=== PATIENT | female | born 1955 | race Hispanic/Latino ===

== ENCOUNTER 2022-08-02 10:31 | Inpatient (IN) | payer MEDICARE ==
[~2022-08-02] VITALS: Ht 162.6 cm; Wt 97.7 kg
[2022-08-02] VITALS (16 sets, daily range): BP systolic 128–191; BP diastolic 68–118
[2022-08-02 10:58] LABS: BASOPHILS # (AUTO) 0.1 (0.0-0.1); BASOPHILS % 0.5 % (0.0-1.0); EOSINOPHILS % 0.3 % (0.0-6.0); HEMATOCRIT 50.5 % (34.2-44.1); HEMOGLOBIN 16.4 g/dL (12.0-16.0); LYMPHOCYTES # (AUTO) 1.6 (1.0-3.2); LYMPHOCYTES % 15.5 % (18.0-39.1); MEAN CORPUSCULAR HEMOGLOBIN 29.3 pg (28-32); MEAN CORPUSCULAR HGB CONC 32.5 g/dL (31-35); MEAN CORPUSCULAR VOLUME 90.3 fL (81-99); MONOCYTES # (AUTO) 0.4 (0.2-0.8); MONOCYTES % 3.6 % (4.4-11.3); NEUTROPHILS # (AUTO) 8.5 (2.1-6.9); NEUTROPHILS % 79.8 % (38.7-80.0); PLATELET COUNT 268 x10e3/uL (140-360); RED BLOOD COUNT 5.59 x10e6/uL (3.6-5.1); RED CELL DISTRIBUTION WIDTH 12.5 % (11.7-14.4)
[2022-08-02 11:11] LABS: INR 0.94; PROTHROMBIN TIME 12.8 seconds (11.9-14.5)
[2022-08-02 11:18] LABS: ALBUMIN 4.6 g/dL (3.5-5.0); ALBUMIN/GLOBULIN RATIO 1.2 (0.8-2.0); ANION GAP 15.6 mmol/L (8-16); CALCIUM 9.9 mg/dL (8.4-10.2); CREATININE, SERUM 0.76 mg/dL (0.57-1.11); POTASSIUM 3.6 mmol/L (3.5-5.1)
[2022-08-02] MEDS ORDERED: IOPAMIDOL 370 MG/ML 100 ML INFUS..BTL INJ ONE (11:42)
[2022-08-02] MEDS ORDERED: SODIUM CHLORIDE 0.9% 100 ML ONE (11:42)
[2022-08-02] MEDS ORDERED: ONDANSETRON HCL INJ 2MG/ML 2ML 2 MG/ML VIAL IV STA (12:53)
[2022-08-02] MEDS ORDERED: ETOMIDATE 2 MG/ML 10 ML INJ IV ONE (12:58)
[2022-08-02] MEDS ORDERED: MIDAZOLAM HCL 2 MG/2 ML VIAL ONE (12:58)
[2022-08-02] MEDS ORDERED: ASPIRIN 81 MG CHEW TAB PO ONE (13:00)
[2022-08-02] MEDS ORDERED: ASPIRIN 300 MG SUPP PR STA (13:05)
[2022-08-02] MEDS ORDERED: SODIUM CHLORIDE 0.9% 1000ML 1,000 ML IV SCH (13:15)
[2022-08-02] MEDS ORDERED: ONDANSETRON HCL INJ 2MG/ML 2ML 2 MG/ML VIAL IV PRN (13:15)
[2022-08-02] MEDS ORDERED: HYDRALAZINE HCL 20 MG/ML VIAL IV ONE (13:30)
[2022-08-02] MEDS ORDERED: METOPROLOL TARTRATE INJ 1 MG/ML VIAL IV PRN (16:30)
[2022-08-02] MEDS ORDERED: NO HOME MEDS PER PT (18:07)
[2022-08-02] MEDS: DEXTROSE 5%/0.45% SOD CHL 1,000 ML IV SCH (18:21)
[2022-08-02] MEDS: LABETALOL HCL 5 MG/ML 20ML VIAL IV PRN (20:26)
[2022-08-03] VITALS (67 sets, daily range): BP systolic 91–221; BP diastolic 61–144
[2022-08-03] MEDS: DEXTROSE 5%/0.45% SOD CHL 1,000 ML IV SCH ×2 (03:20→20:01)
[2022-08-03 05:15] LABS: BASOPHILS % 0.3 % (0.0-1.0); EOSINOPHILS % 0.1 % (0.0-6.0); HEMATOCRIT 47.5 % (34.2-44.1); HEMOGLOBIN 15.6 g/dL (12.0-16.0); LYMPHOCYTES # (AUTO) 1.7 (1.0-3.2); LYMPHOCYTES % 13.1 % (18.0-39.1); MEAN CORPUSCULAR HEMOGLOBIN 29.8 pg (28-32); MEAN CORPUSCULAR HGB CONC 32.8 g/dL (31-35); MEAN CORPUSCULAR VOLUME 90.6 fL (81-99); MONOCYTES # (AUTO) 0.8 (0.2-0.8); MONOCYTES % 5.8 % (4.4-11.3); NEUTROPHILS # (AUTO) 10.6 (2.1-6.9); NEUTROPHILS % 80.5 % (38.7-80.0); PLATELET COUNT 284 x10e3/uL (140-360); RED BLOOD COUNT 5.24 x10e6/uL (3.6-5.1); RED CELL DISTRIBUTION WIDTH 12.8 % (11.7-14.4)
[2022-08-03 05:31] LABS: ANION GAP 14.7 mmol/L (8-16); CALCIUM 9.6 mg/dL (8.4-10.2); CREATININE, SERUM 0.74 mg/dL (0.57-1.11); POTASSIUM 3.7 mmol/L (3.5-5.1)
[2022-08-03] MEDS: LABETALOL HCL 5 MG/ML 20ML VIAL IV PRN ×2 (05:43→07:25)
[2022-08-03 06:00] LABS: CHOL/HDL RATIO 4.6 (3.0-3.6)
[2022-08-03] MEDS ORDERED: LABETALOL HCL 5 MG/ML 20ML VIAL IV PRN (08:00)
[2022-08-03] MEDS ORDERED: LABETALOL HCL 5 MG/ML 20ML VIAL IV ONE ×2 (08:30→11:00)
[2022-08-03] MEDS ORDERED: CLOPIDOGREL BISULFATE 75 MG TAB PO SCH (09:00)
[2022-08-03] MEDS ORDERED: ASPIRIN 81 MG ENTERIC COATED PO SCH (09:00)
[2022-08-03] MEDS ORDERED: POTASSIUM CHLORIDE 20MEQ/100ML 100 ML IV SCH (11:00)
[2022-08-03] MEDS ORDERED: NICARDIPINE 20MG/200ML PREMIX 200 ML ONE (11:36)
[2022-08-03] MEDS: NICARDIPINE 20MG/200ML PREMIX 200 ML IV SCH ×2 (11:47→18:10)
[2022-08-03] MEDS ORDERED: PROPOFOL IV EMULSION 10MG/ML 100 ML IV PRN (13:15)
[2022-08-03] MEDS ORDERED: PROPOFOL IV EMULSION 10MG/ML 100 ML ONE (13:21)
[2022-08-03] MEDS: PROPOFOL IV EMULSION 10MG/ML 100 ML IV PRN ×3 (14:37→20:01)
[2022-08-03] MEDS ORDERED: POTASSIUM CHLORIDE 20MEQ/100ML 100 ML IV ONE (15:00)
[2022-08-03 15:20] LABS: ABG HCO3 25 mmol/L (22-26); ABG PCO2 47 mmHg (35-45); ABG PH 7.33 (7.35-7.45); ABG PO2 96 mmHg (80-105); ABG TCO2 27
[2022-08-03] MEDS ORDERED: SODIUM CHLORIDE 0.9% 1000ML 1,000 ML ONE (15:24)
[2022-08-03] MEDS ORDERED: MIDAZOLAM HCL 2 MG/2 ML VIAL ONE (15:25)
[2022-08-03] MEDS ORDERED: MIDAZOLAM HCL 2 MG/2 ML VIAL IV ONE (15:30)
[2022-08-03 16:21] LABS: ABG PH 7.46 (7.35-7.45)
[2022-08-03 16:22] LABS: ABG HCO3 22 mmol/L (22-26); ABG PCO2 31 mmHg (35-45); ABG PO2 124 mmHg (80-105); ABG TCO2 23
[2022-08-03] MEDS ORDERED: METHYLPREDNISOLONE SOD SUCC 125 MG/2ML VIAL IV ONE (16:45)
[2022-08-03] MEDS: IMMU GLOBULIN,GAMMA (IGG) 400 ML IV SCH (16:51)
[2022-08-03] MEDS: PYRIDOSTIGMINE BROMIDE 60 MG TAB NG SCH ×2 (17:58→21:18)
[2022-08-03 18:09] LABS: ALBUMIN 3.8 g/dL (3.5-5.0); BILIRUBIN,DIRECT 0.3 mg/dL (0.0-0.5)
[2022-08-03 18:11] LABS: CHOL/HDL RATIO 4.8 (3.0-3.6)
[2022-08-03 18:31] LABS: THYROID STIMULATING HORMONE 0.639 uIU/mL (0.350-4.940)
[2022-08-03 18:41] LABS: HIV 1&2 AB SCREEN NON-REACTIVE (NONREACTIVE)
[2022-08-03] MEDS ORDERED: ATORVASTATIN 40 MG TAB PO SCH (21:00)
[2022-08-04] VITALS (64 sets, daily range): BP systolic 81–185; BP diastolic 52–120
[2022-08-04] MEDS: PYRIDOSTIGMINE BROMIDE 60 MG TAB NG SCH ×6 (02:22→21:59)
[2022-08-04] MEDS: PROPOFOL IV EMULSION 10MG/ML 100 ML IV PRN ×6 (02:23→19:14)
[2022-08-04 06:11] LABS: BASOPHILS % 0.4 % (0.0-1.0); HEMATOCRIT 43.7 % (34.2-44.1); HEMOGLOBIN 14.1 g/dL (12.0-16.0); LYMPHOCYTES % 9.1 % (18.0-39.1); MEAN CORPUSCULAR HEMOGLOBIN 29.6 pg (28-32); MEAN CORPUSCULAR HGB CONC 32.3 g/dL (31-35); MEAN CORPUSCULAR VOLUME 91.6 fL (81-99); MONOCYTES # (AUTO) 0.5 (0.2-0.8); MONOCYTES % 4.4 % (4.4-11.3); NEUTROPHILS # (AUTO) 9.5 (2.1-6.9); NEUTROPHILS % 85.7 % (38.7-80.0); PLATELET COUNT 242 x10e3/uL (140-360); RED BLOOD COUNT 4.77 x10e6/uL (3.6-5.1)
[2022-08-04 06:20] LABS: ABG HCO3 24 mmol/L (22-26); ABG PCO2 39 mmHg (35-45); ABG PH 7.39 (7.35-7.45); ABG PO2 116 mmHg (80-105); ABG TCO2 25
[2022-08-04 06:40] LABS: ALBUMIN 3.4 g/dL (3.5-5.0); ALBUMIN/GLOBULIN RATIO 0.8 (0.8-2.0); ANION GAP 12.7 mmol/L (8-16); CALCIUM 9.1 mg/dL (8.4-10.2); CREATININE, SERUM 0.87 mg/dL (0.57-1.11); POTASSIUM 3.7 mmol/L (3.5-5.1)
[2022-08-04] MEDS ORDERED: METHYLPREDNISOLONE SOD SUCC 40 MG/ML VIAL 1ML IV ONE (08:30)
[2022-08-04] MEDS: POTASSIUM CHLORIDE 20MEQ/100ML 100 ML IV SCH ×2 (08:41→11:04)
[2022-08-04] MEDS ORDERED: LIDOCAINE 1% 10 ML MULTIDOSE VIAL IJ ONE (13:23)
[2022-08-04] MEDS ORDERED: IOPAMIDOL 370 MG/ML 100 ML INFUS..BTL INJ ONE (13:30)
[2022-08-04] MEDS ORDERED: MIDAZOLAM HCL 2 MG/2 ML VIAL ONE (14:29)
[2022-08-04 15:32] LABS: APPEARANCE,CSF CLEAR (CLEAR); COLOR,CSF COLORLESS (COLORLESS); TUBE NUMBER 4
[2022-08-04 15:33] LABS: WHITE BLOOD CELL,CSF 2 cells/uL (0-5)
[2022-08-04] MEDS: IMMU GLOBULIN,GAMMA (IGG) 400 ML IV SCH (16:36)
[2022-08-04] MEDS: NICARDIPINE 20MG/200ML PREMIX 200 ML IV SCH (19:13)
[2022-08-05] VITALS (64 sets, daily range): BP systolic 107–180; BP diastolic 62–154
[2022-08-05] MEDS: PROPOFOL IV EMULSION 10MG/ML 100 ML IV PRN ×6 (00:26→21:55)
[2022-08-05] MEDS: PYRIDOSTIGMINE BROMIDE 60 MG TAB NG SCH ×6 (02:26→21:54)
[2022-08-05] MEDS: NICARDIPINE 20MG/200ML PREMIX 200 ML IV SCH ×2 (06:31→12:58)
[2022-08-05 06:57] LABS: BASOPHILS # (AUTO) 0.1 (0.0-0.1); BASOPHILS % 0.5 % (0.0-1.0); EOSINOPHILS % 0.2 % (0.0-6.0); HEMATOCRIT 42.4 % (34.2-44.1); HEMOGLOBIN 14.9 g/dL (12.0-16.0); LYMPHOCYTES % 16.1 % (18.0-39.1); MEAN CORPUSCULAR HGB CONC 35.1 g/dL (31-35); MEAN CORPUSCULAR VOLUME 85.3 fL (81-99); MONOCYTES # (AUTO) 0.7 (0.2-0.8); MONOCYTES % 5.9 % (4.4-11.3); NEUTROPHILS # (AUTO) 9.3 (2.1-6.9); NEUTROPHILS % 76.9 % (38.7-80.0); PLATELET COUNT 213 x10e3/uL (140-360); RED BLOOD COUNT 4.97 x10e6/uL (3.6-5.1); RED CELL DISTRIBUTION WIDTH 13.7 % (11.7-14.4)
[2022-08-05 07:13] LABS: ALBUMIN 3.1 g/dL (3.5-5.0); ALBUMIN/GLOBULIN RATIO 0.6 (0.8-2.0); ANION GAP 10.6 mmol/L (8-16); CALCIUM 8.7 mg/dL (8.4-10.2); CREATININE, SERUM 0.68 mg/dL (0.57-1.11); POTASSIUM 3.6 mmol/L (3.5-5.1)
[2022-08-05 08:17] LABS: ABG HCO3 24 mmol/L (22-26); ABG PCO2 35 mmHg (35-45); ABG PH 7.45 (7.35-7.45); ABG PO2 72 mmHg (80-105)
[2022-08-05 08:18] LABS: ABG TCO2 25
[2022-08-05] MEDS ORDERED: LACTULOSE SYRUP 20 GM/30 ML UDC PO ONE (15:00)
[2022-08-05] MEDS ORDERED: [UNRECOGNIZED DRUG - OTHER] IV ONE (20:00)
[2022-08-05] MEDS ORDERED: [UNRECOGNIZED DRUG - OTHER] IV ONE (20:00)
[2022-08-05] MEDS ORDERED: SODIUM CHLORIDE 0.9% IV ONE ×2 (20:00)
[2022-08-05] MEDS: IMMU GLOBULIN,GAMMA (IGG) 400 ML IV SCH (21:19)
[2022-08-06] VITALS (67 sets, daily range): BP systolic 101–191; BP diastolic 52–118
[2022-08-06] MEDS: PYRIDOSTIGMINE BROMIDE 60 MG TAB NG SCH ×5 (02:10→17:02)
[2022-08-06] MEDS: PROPOFOL IV EMULSION 10MG/ML 100 ML IV PRN ×5 (02:10→21:03)
[2022-08-06] MEDS: NICARDIPINE 20MG/200ML PREMIX 200 ML IV SCH (02:11)
[2022-08-06 08:14] LABS: ABG HCO3 26 mmol/L (22-26); ABG PCO2 42 mmHg (35-45); ABG PO2 66 mmHg (80-105); ABG TCO2 28
[2022-08-06 08:16] LABS: BASOPHILS % 0.4 % (0.0-1.0); EOSINOPHILS # (AUTO) 0.1 (0.0-0.4); EOSINOPHILS % 0.5 % (0.0-6.0); HEMATOCRIT 42.6 % (34.2-44.1); HEMOGLOBIN 13.7 g/dL (12.0-16.0); LYMPHOCYTES # (AUTO) 1.1 (1.0-3.2); LYMPHOCYTES % 10.6 % (18.0-39.1); MEAN CORPUSCULAR HEMOGLOBIN 29.5 pg (28-32); MEAN CORPUSCULAR HGB CONC 32.2 g/dL (31-35); MEAN CORPUSCULAR VOLUME 91.8 fL (81-99); MONOCYTES # (AUTO) 0.8 (0.2-0.8); MONOCYTES % 7.2 % (4.4-11.3); NEUTROPHILS # (AUTO) 8.5 (2.1-6.9); NEUTROPHILS % 80.8 % (38.7-80.0); PLATELET COUNT 170 x10e3/uL (140-360); RED BLOOD COUNT 4.64 x10e6/uL (3.6-5.1)
[2022-08-06 08:38] LABS: ALBUMIN 2.6 g/dL (3.5-5.0); ALBUMIN/GLOBULIN RATIO 0.5 (0.8-2.0); ANION GAP 9.7 mmol/L (8-16); CALCIUM 8.7 mg/dL (8.4-10.2); CREATININE, SERUM 0.7 mg/dL (0.57-1.11); POTASSIUM 3.7 mmol/L (3.5-5.1)
[2022-08-06] MEDS: IMMU GLOBULIN,GAMMA (IGG) 400 ML IV SCH (15:58)
[2022-08-06] MEDS ORDERED: ENOXAPARIN SOD INJ 40 MG/0.4 ML SYR SC SCH (17:00)
[2022-08-06] MEDS ORDERED: ACETAMINOPHEN 1000 MG/100 ML IV PRN (19:30)
[2022-08-06 19:54] LABS: ABG HCO3 29 mmol/L (22-26); ABG PCO2 52 mmHg (35-45); ABG PH 7.34 (7.35-7.45); ABG PO2 74 mmHg (80-105); ABG TCO2 30
[2022-08-06] MEDS ORDERED: SODIUM CHLORIDE 0.9% 1000ML 1,000 ML IV ONE (20:00)
[2022-08-06] MEDS ORDERED: Vancomycin IV 1 GM in SODIUM CHLORIDE 0.9% 250ML 250 ML IV ONE (20:00)
[2022-08-08 15:13] LABS: IGG/ALB RATIO CSF 0.11 (0.00-0.25)
[2022-08-08 15:41] LABS: CSF/SERUM ALBUMIN INDEX 4 (0-8)
== END 2022-08-06 22:35 | disposition short-term general hospital (02) | DRG 56 ==
LOC: ER 10:36 → ERHOLD 13:14 → MED/SURG 16:14 → ICU 17:33 → OBSVTOIN 08-03 08:45
PROVIDERS: ADMIT Internal Medicine; ATTEND Internal Medicine
PROC: 0BH17EZ Insertion of Endotracheal Airway into Trachea, Via Natural or Artificial Opening (ICD-10-PCS; principal; 2022-08-03)
PROC: 5A1945Z Respiratory Ventilation, 24-96 Consecutive Hours (ICD-10-PCS; 2022-08-03)
PROC: 02HV33Z Insertion of Infusion Device into Superior Vena Cava, Percutaneous Approach (ICD-10-PCS; 2022-08-03)
PROC: 03HC33Z Insertion of Infusion Device into Left Radial Artery, Percutaneous Approach (ICD-10-PCS; 2022-08-03)
PROC: 009U3ZX Drainage of Spinal Canal, Percutaneous Approach, Diagnostic (ICD-10-PCS; 2022-08-04)
PROC: B01BYZZ Fluoroscopy of Spinal Cord using Other Contrast (ICD-10-PCS; 2022-08-04)
DX: G70.01 Myasthenia gravis with (acute) exacerbation (principal); J96.00 Acute respiratory failure, unspecified whether with hypoxia or hypercapnia; I16.1 Hypertensive emergency; I10 Essential (primary) hypertension; G52.8 Disorders of other specified cranial nerves; E78.5 Hyperlipidemia, unspecified; E11.65 Type 2 diabetes mellitus with hyperglycemia; E78.00 Pure hypercholesterolemia, unspecified; Z88.8 Allergy status to other drugs, medicaments and biological substances; Z82.3 Family history of stroke
CPT/HCPCS: 31500; 36415; 36569; 36600; 62328; 70496; 70498; 70551; 71045; 71260; 74018; 74470; 80048; 80053; 80061; 80076; 82040; 82550; 82607; 82784; 82805; 83036; 83519; 83916; 84157; 84165; 84443; 84484; 85025; 85610; 86592; 86789; 87070; 87205; 87390; 87476; 89051; 92950; 93005; 94003; 94799; 99252; 99284; G0378; G0433; G0435; J0360; J0692; J1561; J1650; J2250; J2405; J2920; J2930; J3370; J3411; J3480; J7030; J7050; Q9967